=== PATIENT | male | born 1945 | race Caucasian/White ===

== ENCOUNTER 2017-10-15 07:00 | Inpatient (IN) | payer MEDICARE, MEDICAID ==
[2017-10-15 08:15] LABS: ADD MAN DIFF? NO
[2017-10-15 08:17] LABS: WHITE BLOOD COUNT 13.7 10^3/ul (4.8-10.8)
[2017-10-15 08:17] LABS: ABNORMAL IP MESSAGE 1; BASOPHILS % 0.2 % (0.0-2.0); EOSINOPHILS % 0.3 % (0.0-7.0); LYMPHOCYTES # 0.5 10^3/ul (0.8-2.9); LYMPHOCYTES % 3.4 % (15.0-51.0); MEAN CORPUSCULAR HEMOGLOBIN 29.2 pg (29.0-33.0); MEAN CORPUSCULAR HGB CONC 33.3 g/dl (32.0-37.0); MEAN CORPUSCULAR VOLUME 87.5 fl (82.0-101.0); MONOCYTE # 0.9 10^3/ul (0.3-0.9); MONOCYTES % 6.6 % (0.0-11.0); NEUTROPHIL # 12.2 10^3/ul (1.6-7.5); NEUTROPHILS % 89.1 % (39.0-77.0); PLATELET COUNT 346 10^3/UL (140-415); POSITIVE DIFF @See below; RED BLOOD COUNT 3.43 10^6/ul (4.70-6.10); RED CELL DISTRIBUTION WIDTH 13.9 % (11.5-14.5)
[2017-10-15] MEDS: CEFTRIAXONE 1 GM/50 ML (PMX) 50 ML IVPB (08:23)
[2017-10-15] MEDS: IBUPROFEN 600 MG TAB PO (08:23)
[2017-10-15] MEDS: SODIUM CHLORIDE 0.9% 1L BAG IV* (08:25)
[2017-10-15 08:38] LABS: ALANINE AMINOTRANSFERASE 42 IU/L (13-69); ALBUMIN 3.1 g/dl (3.3-4.9); ALBUMIN/GLOBULIN RATIO 0.88; ALKALINE PHOSPHATASE 143 IU/L (42-121); ANION GAP 13 (8-16); ASPARTATE AMINO TRANSFERASE 23 IU/L (15-46); BILIRUBIN,INDIRECT 0.5 mg/dl (0-1.1); BILIRUBIN,TOTAL 0.5 mg/dl (0.2-1.3); BLOOD UREA NITROGEN 28 mg/dl (7-20); CALCIUM 8.2 mg/dl (8.4-10.2); CARBON DIOXIDE 27 mmol/L (21-31); CHLORIDE 104 mmol/L (97-110); CREATININE 1.31 mg/dl (0.61-1.24); GLUCOSE 188 mg/dl (70-220); LIPASE 37 U/L (23-300); SODIUM 140 mmol/L (135-144); TOTAL PROTEIN 6.6 g/dl (6.1-8.1)
[2017-10-15 08:42] LABS: LACTIC ACID 1.5 mmol/L (0.5-2.0)
[2017-10-15 08:43] LABS: INR 0.98; PROTIME 13.1 Sec (11.9-14.9)
[2017-10-15 08:44] LABS: PARTIAL THROMBOPLASTIN TIME 26.3 Sec (25.0-35.0)
[2017-10-15 08:49] LABS: B-TYPE NATRIURETIC PEPTIDE 2420 PG/ML (0-125)
[2017-10-15 09:12] LABS: TROPONIN-I < 0.012 ng/ml (0.00-0.12)
[2017-10-15] MEDS: AZITHROMYCIN 500MG/NS (PMX) 250 ML IVPB (09:44)
[2017-10-15] MEDS ORDERED: ONDANSETRON 4 MG INJ IV (13:00)
[2017-10-15] MEDS ORDERED: ACETAMINOPHEN 325 MG TAB PO (13:00)
[2017-10-15] MEDS: FUROSEMIDE 20 MG INJ IV (13:00)
[2017-10-15] MEDS ORDERED: GLUCOSE GEL 15 GRAM TUBE BUCCAL (13:30)
[2017-10-15] MEDS ORDERED: DEXTROSE 50% 50 ML SYRINGE IV ×2 (13:30)
[2017-10-15] MEDS ORDERED: GLUCOSE GEL 15 GRAM TUBE PO ×2 (13:30)
[2017-10-15] MEDS ORDERED: GLUCAGON 1 MG INJ IM (13:30)
[2017-10-15 14:28] LABS: CREATINE KINASE 61 IU/L (23-200)
[2017-10-15 14:29] LABS: LACTIC ACID 1.5 mmol/L (0.5-2.0)
[2017-10-15 14:41] LABS: TROPONIN-I 0.015 ng/ml (0.00-0.12)
[2017-10-15 14:56] LABS: CK-MB 0.63 ng/ml (0.0-2.4)
[2017-10-15] MEDS: SOD CHLORIDE 0.9% 1,000 ML IV (16:22)
[2017-10-15] MEDS: INSULIN ASPART [NOVOLOG] 3 ML PEN SC ×2 (17:25→22:26)
[2017-10-15] MEDS ORDERED: INFLUENZA VIRUS VACCINE 0.5 ML (DISPENSING) IM* (18:00)
[2017-10-15 19:39] LABS: CREATINE KINASE 61 IU/L (23-200)
[2017-10-15 19:48] LABS: CK INDEX 0.9
[2017-10-15 20:00] LABS: CK-MB 0.57 ng/ml (0.0-2.4); TROPONIN-I < 0.012 ng/ml (0.00-0.12)
[2017-10-15 23:35] LABS: ADD UMIC YES; UR ASCORBIC ACID NEGATIVE (NEGATIVE); UR BILIRUBIN (Dip) NEGATIVE (NEGATIVE); UR BLOOD (Dip) 1+ mg/dL (NEGATIVE); UR CLARITY CLEAR (CLEAR); UR COLOR YELLOW (YELLOW); UR GLUCOSE (Dip) 1+ mg/dL (NEGATIVE); UR KETONES (Dip) NEGATIVE (NEGATIVE); UR LEUKOCYTE ESTERASE (Dip) NEGATIVE Leu/ul (NEGATIVE); UR NITRITE (Dip) NEGATIVE (NEGATIVE); UR RBC 4 /HPF (0-5); UR SPECIFIC GRAVITY (Dip) 1.015 (1.003-1.030); UR TOTAL PROTEIN (Dip) 2+ mg/dl (NEGATIVE); UR UROBILINOGEN (Dip) NEGATIVE (NEGATIVE); UR WBC 2 /HPF (0-5)
[2017-10-16] MEDS: ACCU-CHEK XX (01:43)
[2017-10-16] MEDS: SOD CHLORIDE 0.9% 1,000 ML IV ×4 (01:45→19:17)
[2017-10-16 07:38] LABS: ADD MAN DIFF? NO
[2017-10-16 07:44] LABS: WHITE BLOOD COUNT 16.1 10^3/ul (4.8-10.8)
[2017-10-16 07:44] LABS: BASOPHIL # 0.1 10^3/ul (0.0-0.1); BASOPHILS % 0.3 % (0.0-2.0); EOSINOPHILS # 0.1 10^3/ul (0.0-0.5); EOSINOPHILS % 0.6 % (0.0-7.0); HEMATOCRIT 25.1 % (42.0-52.0); HEMOGLOBIN 8.5 g/dl (14.0-18.0); LYMPHOCYTES # 0.9 10^3/ul (0.8-2.9); LYMPHOCYTES % 5.5 % (15.0-51.0); MEAN CORPUSCULAR HEMOGLOBIN 29.5 pg (29.0-33.0); MEAN CORPUSCULAR HGB CONC 33.9 g/dl (32.0-37.0); MEAN CORPUSCULAR VOLUME 87.2 fl (82.0-101.0); MONOCYTES % 6.4 % (0.0-11.0); NEUTROPHILS % 86.8 % (39.0-77.0); PLATELET COUNT 261 10^3/UL (140-415); RED BLOOD COUNT 2.88 10^6/ul (4.70-6.10); RED CELL DISTRIBUTION WIDTH 14.6 % (11.5-14.5)
[2017-10-16 08:06] LABS: ANION GAP 12 (8-16); BLOOD UREA NITROGEN 33 mg/dl (7-20); CALCIUM 8.3 mg/dl (8.4-10.2); CARBON DIOXIDE 27 mmol/L (21-31); CHLORIDE 106 mmol/L (97-110); CHOL/HDL RATIO 2.5 RATIO; CHOLESTEROL 66 mg/dl (100-200); GLUCOSE 188 mg/dl (70-220); HDL CHOLESTEROL 26 mg/dl (31-75); LDL CHOLESTEROL,CALCULATED 32 mg/dl; SODIUM 141 mmol/L (135-144); TRIGLYCERIDES 39 mg/dl (0-149)
[2017-10-16] MEDS: INSULIN ASPART [NOVOLOG] 3 ML PEN SC ×4 (08:11→20:42)
[2017-10-16 09:42] LABS: HEMOGLOBIN A1C 7.7 % (0-5.9)
[2017-10-16] MEDS ORDERED: AZITHROMYCIN 250 MG in SOD CHLORIDE 0.9% 250 ML IVPB (13:00)
[2017-10-16] MEDS ORDERED: CEFTRIAXONE 1 GM/50 ML (PMX) 50 ML IVPB (13:00)
[2017-10-16] MEDS ORDERED: INSULIN GLARGINE [LANtus] 3 ML PEN SC (13:30)
[2017-10-16] MEDS: PIPER-TAZO 3.375 GM IV (PMX) 50 ML IVPB ×2 (13:57→21:38)
[2017-10-16] MEDS: INSULIN GLARGINE [LANtus] 3 ML PEN SC (20:42)
[2017-10-16] MEDS: FISH OIL 1,000 MG CAP PO (20:44)
[2017-10-16] MEDS: hydrALAzine 20 MG INJ IV (21:38)
[2017-10-16] MEDS: DILTIAZEM 25 MG INJ IV (23:40)
[2017-10-16] MEDS: GUAIFENESIN/DM 5ML CUP PO (23:41)
[2017-10-17] MEDS: DILTIAZEM-D5W 125MG/125ML DRIP 125 ML IV ×2 (00:09→07:55)
[2017-10-17] MEDS: ACCU-CHEK XX (02:00)
[2017-10-17] MEDS: PIPER-TAZO 3.375 GM IV (PMX) 50 ML IVPB ×3 (05:43→22:34)
[2017-10-17] MEDS: FISH OIL 1,000 MG CAP PO ×2 (08:03→22:37)
[2017-10-17] MEDS: INSULIN ASPART [NOVOLOG] 3 ML PEN SC ×4 (08:07→21:00)
[2017-10-17] MEDS ORDERED: INFLUENZA VIRUS VACCINE 0.5 ML (DISPENSING) IM* (09:00)
[2017-10-17 09:40] LABS: ADD MAN DIFF? NO
[2017-10-17 09:45] LABS: BASOPHILS % 0.2 % (0.0-2.0); EOSINOPHILS # 0.1 10^3/ul (0.0-0.5); EOSINOPHILS % 0.7 % (0.0-7.0); HEMATOCRIT 26.5 % (42.0-52.0); HEMOGLOBIN 8.9 g/dl (14.0-18.0); LYMPHOCYTES # 0.7 10^3/ul (0.8-2.9); LYMPHOCYTES % 5.8 % (15.0-51.0); MEAN CORPUSCULAR HEMOGLOBIN 29.6 pg (29.0-33.0); MEAN CORPUSCULAR HGB CONC 33.6 g/dl (32.0-37.0); MONOCYTE # 0.7 10^3/ul (0.3-0.9); MONOCYTES % 5.9 % (0.0-11.0); NEUTROPHIL # 10.9 10^3/ul (1.6-7.5); NEUTROPHILS % 86.8 % (39.0-77.0); PLATELET COUNT 253 10^3/UL (140-415); RED BLOOD COUNT 3.01 10^6/ul (4.70-6.10); RED CELL DISTRIBUTION WIDTH 14.3 % (11.5-14.5)
[2017-10-17 09:45] LABS: WHITE BLOOD COUNT 12.5 10^3/ul (4.8-10.8)
[2017-10-17 10:10] LABS: ANION GAP 13 (8-16); BLOOD UREA NITROGEN 31 mg/dl (7-20); CALCIUM 8.4 mg/dl (8.4-10.2); CARBON DIOXIDE 25 mmol/L (21-31); CHLORIDE 107 mmol/L (97-110); GLUCOSE 145 mg/dl (70-220); POTASSIUM 3.5 mmol/L (3.5-5.1); SODIUM 141 mmol/L (135-144)
[2017-10-17] MEDS: POTASSIUM CHLORIDE (SR) 20 MEQ TAB PO (11:48)
[2017-10-17] MEDS: FUROSEMIDE 20 MG INJ IV ×2 (11:52→17:41)
[2017-10-17] MEDS: APIXABAN 5 MG TABLET PO ×2 (11:56→22:35)
[2017-10-17] MEDS: LORATADINE 10 MG TAB PO (15:46)
[2017-10-17] MEDS: GUAIFENESIN/DM 5ML CUP PO ×2 (17:41→22:34)
[2017-10-17] MEDS: glipiZIDE (XL) 2.5 MG TAB PO (17:42)
[2017-10-17] MEDS ORDERED: ZOLPIDEM 5 MG TAB PO (22:30)
[2017-10-17] MEDS: INSULIN GLARGINE [LANtus] 3 ML PEN SC (22:50)
[2017-10-18] MEDS: ACCU-CHEK XX (02:00)
[2017-10-18] MEDS: GUAIFENESIN/DM 5ML CUP PO ×4 (05:50→23:27)
[2017-10-18] MEDS: PIPER-TAZO 3.375 GM IV (PMX) 50 ML IVPB ×3 (05:51→20:41)
[2017-10-18] MEDS: FUROSEMIDE 20 MG INJ IV (05:51)
[2017-10-18 07:41] LABS: ADD MAN DIFF? NO
[2017-10-18 07:59] LABS: BASOPHILS % 0.3 % (0.0-2.0); EOSINOPHILS # 0.1 10^3/ul (0.0-0.5); EOSINOPHILS % 1.1 % (0.0-7.0); HEMATOCRIT 28.4 % (42.0-52.0); HEMOGLOBIN 9.4 g/dl (14.0-18.0); LYMPHOCYTES # 0.9 10^3/ul (0.8-2.9); LYMPHOCYTES % 8.6 % (15.0-51.0); MEAN CORPUSCULAR HEMOGLOBIN 29.4 pg (29.0-33.0); MEAN CORPUSCULAR HGB CONC 33.1 g/dl (32.0-37.0); MEAN CORPUSCULAR VOLUME 88.8 fl (82.0-101.0); MEAN PLATELET VOLUME 11.3 fl (7.4-10.4); MONOCYTE # 0.6 10^3/ul (0.3-0.9); MONOCYTES % 5.3 % (0.0-11.0); NEUTROPHIL # 8.7 10^3/ul (1.6-7.5); NEUTROPHILS % 84.1 % (39.0-77.0); PLATELET COUNT 283 10^3/UL (140-415); RED CELL DISTRIBUTION WIDTH 14.4 % (11.5-14.5)
[2017-10-18 07:59] LABS: WHITE BLOOD COUNT 10.4 10^3/ul (4.8-10.8)
[2017-10-18 08:21] LABS: MAGNESIUM 2.1 mg/dl (1.7-2.5)
[2017-10-18 08:22] LABS: ANION GAP 14 (8-16); BLOOD UREA NITROGEN 37 mg/dl (7-20); CALCIUM 8.7 mg/dl (8.4-10.2); CARBON DIOXIDE 23 mmol/L (21-31); CHLORIDE 108 mmol/L (97-110); CREATININE 1.84 mg/dl (0.61-1.24); GLUCOSE 143 mg/dl (70-220); POTASSIUM 4.4 mmol/L (3.5-5.1); SODIUM 141 mmol/L (135-144)
[2017-10-18] MEDS: FISH OIL 1,000 MG CAP PO ×2 (08:58→20:36)
[2017-10-18] MEDS: glipiZIDE (XL) 2.5 MG TAB PO ×2 (08:59→17:21)
[2017-10-18] MEDS: APIXABAN 5 MG TABLET PO ×2 (08:59→20:37)
[2017-10-18] MEDS: LISINOPRIL 5 MG TAB PO (08:59)
[2017-10-18] MEDS: LORATADINE 10 MG TAB PO (09:00)
[2017-10-18] MEDS: INSULIN ASPART [NOVOLOG] 3 ML PEN SC ×4 (09:02→20:40)
[2017-10-18] MEDS: hydrALAzine 20 MG INJ IV (09:34)
[2017-10-18] MEDS: LINAGLIPTIN 5 MG TABLET PO (15:07)
[2017-10-18] MEDS: INSULIN GLARGINE [LANtus] 3 ML PEN SC (20:39)
[2017-10-19] MEDS: ACCU-CHEK XX (02:19)
[2017-10-19] MEDS: PIPER-TAZO 3.375 GM IV (PMX) 50 ML IVPB ×2 (05:10→14:00)
[2017-10-19] MEDS: GUAIFENESIN/DM 5ML CUP PO ×2 (05:10→12:27)
[2017-10-19] MEDS: INSULIN ASPART [NOVOLOG] 3 ML PEN SC ×2 (08:00→12:00)
[2017-10-19] MEDS: LINAGLIPTIN 5 MG TABLET PO (08:14)
[2017-10-19] MEDS: glipiZIDE (XL) 2.5 MG TAB PO (08:14)
[2017-10-19] MEDS: LORATADINE 10 MG TAB PO (08:14)
[2017-10-19] MEDS: APIXABAN 5 MG TABLET PO (08:15)
[2017-10-19] MEDS: FISH OIL 1,000 MG CAP PO (08:15)
[2017-10-19] MEDS: LISINOPRIL 5 MG TAB PO (08:15)
[2017-10-19 09:11] LABS: ALANINE AMINOTRANSFERASE 33 IU/L (13-69); ALBUMIN 2.8 g/dl (3.3-4.9); ALBUMIN/GLOBULIN RATIO 0.73; ALKALINE PHOSPHATASE 105 IU/L (42-121); ANION GAP 14 (8-16); ASPARTATE AMINO TRANSFERASE 20 IU/L (15-46); BLOOD UREA NITROGEN 40 mg/dl (7-20); CALCIUM 8.7 mg/dl (8.4-10.2); CARBON DIOXIDE 24 mmol/L (21-31); CHLORIDE 110 mmol/L (97-110); CREATININE 1.61 mg/dl (0.61-1.24); GLUCOSE 75 mg/dl (70-220); MAGNESIUM 2.3 mg/dl (1.7-2.5); POTASSIUM 3.7 mmol/L (3.5-5.1); SODIUM 144 mmol/L (135-144); TOTAL PROTEIN 6.6 g/dl (6.1-8.1)
[2017-10-19] MEDS: AZITHROMYCIN 250 MG TAB PO (13:59)
[2017-10-19] MEDS: INFLUENZA VIRUS VACCINE 0.5 ML (DISPENSING) IM* (14:08)
== END 2017-10-19 17:27 | disposition home or self-care (01) | DRG 871 ==
LOC: E/R 07:00 → MS4 09:42
DX: A41.9 Sepsis, unspecified organism (principal); J18.9 Pneumonia, unspecified organism; I50.33 Acute on chronic diastolic (congestive) heart failure; N17.9 Acute kidney failure, unspecified; I13.0 Hypertensive heart and chronic kidney disease with heart failure and stage 1 through stage 4 chronic kidney disease, or unspecified chronic kidney disease; I27.20 Pulmonary hypertension, unspecified; E11.22 Type 2 diabetes mellitus with diabetic chronic kidney disease; N18.3 Chronic kidney disease, stage 3 (moderate); D64.9 Anemia, unspecified; I08.1 Rheumatic disorders of both mitral and tricuspid valves; R09.89 Other specified symptoms and signs involving the circulatory and respiratory systems; I48.0 Paroxysmal atrial fibrillation
CPT/HCPCS: 36415; 71010; 80048; 80053; 80061; 81001; 82550; 82553; 82962; 83036; 83605; 83690; 83735; 83880; 84443; 84484; 85025; 85610; 85730; 87040; 87086; 87400; 90686; 93005; 93306; 96374; 96375; 99285-25; J1940

== ENCOUNTER 2017-10-30 00:14 | Emergency (ER) | payer MEDICARE, MEDICAID ==
[2017-10-30 02:35] LABS: ADD MAN DIFF? NO
[2017-10-30 02:36] LABS: WHITE BLOOD COUNT 9.3 10^3/ul (4.8-10.8)
[2017-10-30 02:36] LABS: BASOPHIL # 0.1 10^3/ul (0.0-0.1); BASOPHILS % 0.5 % (0.0-2.0); EOSINOPHILS # 0.2 10^3/ul (0.0-0.5); EOSINOPHILS % 1.7 % (0.0-7.0); HEMOGLOBIN 10.1 g/dl (14.0-18.0); LYMPHOCYTES # 0.9 10^3/ul (0.8-2.9); LYMPHOCYTES % 9.3 % (15.0-51.0); MEAN CORPUSCULAR HEMOGLOBIN 28.8 pg (29.0-33.0); MEAN CORPUSCULAR HGB CONC 32.6 g/dl (32.0-37.0); MEAN CORPUSCULAR VOLUME 88.3 fl (82.0-101.0); MEAN PLATELET VOLUME 10.6 fl (7.4-10.4); MONOCYTE # 0.9 10^3/ul (0.3-0.9); MONOCYTES % 9.1 % (0.0-11.0); NEUTROPHIL # 7.4 10^3/ul (1.6-7.5); NEUTROPHILS % 79.1 % (39.0-77.0); PLATELET COUNT 315 10^3/UL (140-415); RED BLOOD COUNT 3.51 10^6/ul (4.70-6.10); RED CELL DISTRIBUTION WIDTH 15.5 % (11.5-14.5)
[2017-10-30 02:58] LABS: ALANINE AMINOTRANSFERASE 51 IU/L (13-69); ALBUMIN 3.5 g/dl (3.3-4.9); ALBUMIN/GLOBULIN RATIO 1.06; ALKALINE PHOSPHATASE 108 IU/L (42-121); ANION GAP 16 (8-16); ASPARTATE AMINO TRANSFERASE 31 IU/L (15-46); BILIRUBIN,INDIRECT 0.5 mg/dl (0-1.1); BILIRUBIN,TOTAL 0.5 mg/dl (0.2-1.3); BLOOD UREA NITROGEN 23 mg/dl (7-20); CALCIUM 8.1 mg/dl (8.4-10.2); CARBON DIOXIDE 24 mmol/L (21-31); CHLORIDE 105 mmol/L (97-110); CREATININE 1.41 mg/dl (0.61-1.24); GLUCOSE 175 mg/dl (70-220); POTASSIUM 4.9 mmol/L (3.5-5.1); SODIUM 140 mmol/L (135-144); TOTAL PROTEIN 6.8 g/dl (6.1-8.1)
[2017-10-30 03:10] LABS: B-TYPE NATRIURETIC PEPTIDE 7490 PG/ML (0-125)
[2017-10-30 03:14] LABS: TROPONIN-I < 0.012 ng/ml (0.00-0.12)
[2017-10-30] MEDS: FUROSEMIDE 40 MG INJ IV (04:10)
[2017-10-30 05:49] LABS: URINE BLOOD (Dip) POC 1+ (NEGATIVE); URINE GLUCOSE (Dip) POC Negative (NEGATIVE); URINE KETONES (Dip) POC Negative (NEGATIVE); URINE LEUKOCYTE EST (Dip) POC Negative (NEGATIVE); URINE NITRITE (Dip) POC Negative (NEGATIVE); URINE TOTAL PROTEIN POC 1+ (NEGATIVE)
[2017-10-30 05:49] LABS: URINE PH (Dip) POC 5.5 (5.0-8.5)
[2017-10-30 05:51] LABS: UR CLARITY CLOUDY (CLEAR); UR COLOR YELLOW (YELLOW)
[2017-10-30 05:52] LABS: ADD UMIC YES; UR BILIRUBIN (Dip) NEGATIVE (NEGATIVE); UR BLOOD (Dip) 2+ mg/dL (NEGATIVE); UR GLUCOSE (Dip) NEGATIVE (NEGATIVE); UR KETONES (Dip) NEGATIVE (NEGATIVE); UR LEUKOCYTE ESTERASE (Dip) NEGATIVE Leu/ul (NEGATIVE); UR NITRITE (Dip) NEGATIVE (NEGATIVE); UR TOTAL PROTEIN (Dip) 2+ mg/dl (NEGATIVE); UR UROBILINOGEN (Dip) 0.2 E.U./dL mg/dL (NEGATIVE); URINE SPECIFIC GRAVITY (Dip) >=1.030 (1.003-1.030)
[2017-10-30 05:56] LABS: UR AMORPHOUS CRYSTAL MODERATE /HPF (NONE SEEN)
== END 2017-10-30 07:11 | disposition home or self-care (01) ==
LOC: FTE 00:14
DX: J18.9 Pneumonia, unspecified organism (principal); I50.30 Unspecified diastolic (congestive) heart failure; I10 Essential (primary) hypertension; Z79.01 Long term (current) use of anticoagulants; Z79.84 Long term (current) use of oral hypoglycemic drugs
CPT/HCPCS: 36415; 71045; 80053; 81001; 81003; 83880; 84484; 85025; 87400; 93005; 96374; 99285-25

== ENCOUNTER 2017-10-31 19:39 | Emergency (ER) | payer MEDICARE, MEDICAID | END 2017-10-31 23:33 | disposition home or self-care (01) | LOC: FTE 23:33 | DX: Z46.6 Encounter for fitting and adjustment of urinary device (principal); I10 Essential (primary) hypertension; E11.9 Type 2 diabetes mellitus without complications; Z79.84 Long term (current) use of oral hypoglycemic drugs; Z79.01 Long term (current) use of anticoagulants | CPT/HCPCS: 99282 ==

== ENCOUNTER 2017-11-22 23:16 | Emergency (ER) | payer MEDICARE, MEDICAID ==
[2017-11-22] MEDS ORDERED: SOD CHLORIDE 0.9% 100 ML (23:20)
[2017-11-22] MEDS: SOD CHLORIDE 0.9% 1,000 ML IV (23:20)
[2017-11-22] MEDS ORDERED: IOHEXOL 100 ML (23:20)
[2017-11-22 23:32] LABS: ADD MAN DIFF? NO
[2017-11-22 23:35] LABS: BASOPHILS % 0.4 % (0.0-2.0); EOSINOPHILS % 0.3 % (0.0-7.0); HEMATOCRIT 32.1 % (42.0-52.0); HEMOGLOBIN 10.9 g/dl (14.0-18.0); LYMPHOCYTES # 1.3 10^3/ul (0.8-2.9); LYMPHOCYTES % 12.1 % (15.0-51.0); MEAN CORPUSCULAR HEMOGLOBIN 28.8 pg (29.0-33.0); MEAN CORPUSCULAR VOLUME 84.9 fl (82.0-101.0); MEAN PLATELET VOLUME 10.9 fl (7.4-10.4); MONOCYTE # 0.7 10^3/ul (0.3-0.9); MONOCYTES % 6.3 % (0.0-11.0); NEUTROPHIL # 8.6 10^3/ul (1.6-7.5); NEUTROPHILS % 80.7 % (39.0-77.0); PLATELET COUNT 268 10^3/UL (140-415); RED BLOOD COUNT 3.78 10^6/ul (4.70-6.10); RED CELL DISTRIBUTION WIDTH 14.8 % (11.5-14.5)
[2017-11-22 23:35] LABS: WHITE BLOOD COUNT 10.7 10^3/ul (4.8-10.8)
[2017-11-22] MEDS: ALTEPLASE 100 MG INJ IV* (23:59)
[2017-11-22] MEDS: ALTEPLASE (tPA) 1 MG/ML BOLUS SYG IV* (23:59)
[2017-11-23 00:10] LABS: PROTIME 13.3 Sec (11.9-14.9)
[2017-11-23 00:11] LABS: PARTIAL THROMBOPLASTIN TIME 29.6 Sec (25.0-35.0)
[2017-11-23 00:14] LABS: ALANINE AMINOTRANSFERASE 48 IU/L (13-69); ALBUMIN 3.9 g/dl (3.3-4.9); ALBUMIN/GLOBULIN RATIO 1.05; ALKALINE PHOSPHATASE 106 IU/L (42-121); ANION GAP 14 (8-16); ASPARTATE AMINO TRANSFERASE 29 IU/L (15-46); BILIRUBIN,INDIRECT 0.9 mg/dl (0-1.1); BILIRUBIN,TOTAL 0.9 mg/dl (0.2-1.3); BLOOD UREA NITROGEN 30 mg/dl (7-20); CALCIUM 9.1 mg/dl (8.4-10.2); CARBON DIOXIDE 26 mmol/L (21-31); CHLORIDE 104 mmol/L (97-110); CHOL/HDL RATIO 3.2 RATIO; CHOLESTEROL 138 mg/dl (100-200); CREATINE KINASE 63 IU/L (23-200); CREATININE 1.27 mg/dl (0.61-1.24); GLUCOSE 202 mg/dl (70-220); HDL CHOLESTEROL 42 mg/dl (31-75); LDL CHOLESTEROL,CALCULATED 85 mg/dl; POTASSIUM 4.1 mmol/L (3.5-5.1); SODIUM 140 mmol/L (135-144); TOTAL PROTEIN 7.6 g/dl (6.1-8.1); TRIGLYCERIDES 57 mg/dl (0-149)
[2017-11-23 00:25] LABS: CK INDEX 1.7
[2017-11-23 00:31] LABS: CK-MB 1.08 ng/ml (0.0-2.4); TROPONIN-I < 0.012 ng/ml (0.00-0.12)
[2017-11-23] MEDS: ASPIRIN 300 MG SUPP PR (00:32)
[2017-11-23 00:40] LABS: HEMOGLOBIN A1C 6.6 % (0-5.9)
== END 2017-11-23 01:00 | disposition short-term general hospital (02) ==
LOC: E/R 23:16
DX: I63.321 Cerebral infarction due to thrombosis of right anterior cerebral artery (principal); G83.9 Paralytic syndrome, unspecified; I10 Essential (primary) hypertension; E11.9 Type 2 diabetes mellitus without complications; I50.30 Unspecified diastolic (congestive) heart failure; Z79.84 Long term (current) use of oral hypoglycemic drugs; Z79.01 Long term (current) use of anticoagulants
CPT/HCPCS: 37195; 70450; 70496; 70498; 71045; 80053; 80061; 82550; 82553; 83036; 84484; 85025; 85610; 85730; 86850; 86900; 86901; 99291-25